=== PATIENT | female | born 1995 | race Hispanic/Latino ===

== ENCOUNTER 2020-06-19 18:38 | Inpatient (IN) | payer MEDICAID, SELFPAY ==
[~2020-06-19 18:38] MED LIST: Bupivacaine 0.25% HCL 30 ML VIAL ONE
[2020-06-19] MEDS: Lactated Ringer's 1,000 ML IV SCH (20:20)
[2020-06-19 20:21] VITALS: BMI 36.2
--- NOTE | 2020-06-19 20:30 | PDOC.FPROB ---
FMR OB H&P: HPI - History of Present Illness Chief Complaint: SROM History of Present Illness: Patient is a 24 yo, at 38 weeks by LMP/29 week sono, late to care at 29 weeks, who presents to the ED due to SROM at 1730 this evening with a gush of clear fluid. She states that baby has moving well, and she has had no bleeding. course has been unremarkable except for a positive chlamydia 05/23 that she states she got an antibiotic and took the full doses of the antibiotic. AMANDEEP was last saturday but she does not have the results yet. Endorses +FM. Endorses LOF. Denies vaginal bleeding, discharge, dysuria, NVD, chest pain, SOB, palpitations, LE swelling, vision changes or headache. Primary Care Physician: KAMI FMR OB H&P: Current - Care : G1 Para: P0 Gestational age: 38 weeks Due date: 07/03/2020 Dating Criteria: LMP/29 week dating sono - OB Labs Blood type: B RH: positive Antibody Screen: negative HIV: negative RPR: negative HepBsAg: negative Rubella: immune Gonorrhea: negative Chlamydia: unknown Pap Smear: NILM 05/18 1 hour gtt: 76 3 hour GTT: 85 GBS: negative H&H: 12.1/35.2 Platelets: 290 - Anatomy Survey Anatomy survey: 05/20/2020 FMR OB H&P: History - Past Medical History PMH: none - OB History OB History: - [employer] History [employer] History: NILM 05/18 - Surgical History Sx History: none - Social History Social History: no alcohol, smoking or drugs - Family History Family History: Mother and grandmother with HTN FMR OB H&P: Medications - Current Home Medications: Medication Instructions Recorded Confirmed Type Vitamin 1 tablet PO DAILY 06/19/20 06/19/20 History Allergies/Adverse Reactions: Allergies Allergy/AdvReac Type Severity Reaction Status Date / Time No Known Allergies Allergy Verified 06/19/20 20:17 FMR OB H&P: ROS - Review of Systems General: denies: fever/chills, weight/appetite/sleep changes Eyes: denies: eye pain, vision changes ENT: denies: nasal congestion, rhinorrhea Cardiovascular: denies: chest pain, palpitation Gastrointestinal: denies: indigestion, nausea, vomiting Genitourinary (Female): denies: incontinence, dysuria Musculoskeletal: denies: pain, stiffness Neurologic: denies: numbness, syncope Integumentary: denies: itching, rash Breast: denies: lumps, bumps Endocrine: denies: cold intolerance, polydipsia, polyuria Hematologic/Lymphatic: denies: prolonged or excessive bleeding, enlarged lymph nodes FMR OB H&P: Vital Signs - Maternal Vital signs: 123/82, 102, temp 98.5 - Heart Tones Baseline: 150 Acceleration: present Deceleration: absent Category: category 1 [place] contractions every: 5-7 min FMR OB H&P: Physical Exam - Physical Exam General: NAD HEENT: normocephalic and atraumatic, PERRLA, EOMI Neck: supple, FROM Chest: non-tender to palpation Breast: symmetric, non-tender Heart: RRR, no murmurs/rubs/gallops General: CTAB, no wheezing Abdomen: soft, gravid, non-tender Musculoskeletal: normal gait and station, pulses present, FROM in all four extremities Neurological: no focal deficit Skin: no rash, good tugor Psychiatric: intact recent and remote memory, good judgement and insight, normal mood and affect - Pelvic Exam Deviation from normal: Speculum exam showed pooling SVE: 350/-2 Turner score: 6 Membranes: SROM Presentation: cephalic FMR OB H&P: A/P Discussion: Date/Time: 06/19/202029 sIUP, Term @ 38 weeks by LMP/29 week sono, MADIE 07/03/2020 GBS negative, labs neg, covid ordered SROM at 1715 Check @ 1930 3/50/-2, cat I strip, baseline 150bpm, alessandro q4-5 min, Turner score 6 - continue monitoring - recheck at 0001, unchanged can consider starting pitocin at that time Hx of Chlamydia - patient states she completed treatment, AMANDEEP last week still pending Late to Care Presented at 29 weeks Dating US @ 29 weeks c/w LMP - CM consult for baby This H&P was discussed with Dr. Flor who agree with the above documentation and plan. Addendum - Attending - Attending Attestation Date/Time: 06/20/20 0236 I personally evaluated the patient and discussed the management with Dr. Mcleod. I agree with the History, Examination, Assessment and Plan documented above.
[2020-06-19] MEDS ORDERED: Lidocaine 1% (PF) 30 ML VIAL SC PRN (20:35)
[2020-06-19] MEDS ORDERED: Acetaminophen 500 MG TAB PO PRN (20:35)
[2020-06-19] MEDS ORDERED: Promethazine HCl 25 MG/ML VIAL IM PRN (20:35)
[2020-06-19] MEDS ORDERED: hydrALAZINE 20 MG/ML VIAL SLOW IVP PRN ×2 (20:35)
[2020-06-19] MEDS ORDERED: NS / Oxytocin 40 units/1000ml 1,000 ML IV PRN (20:35)
[2020-06-19] MEDS ORDERED: NS w/ Oxytocin 10 units 500 ML IV SCH (20:45)
[2020-06-19 21:12] LABS: Hemoglobin 11.9 g/dL (12.0-16.0); Mean Corpuscular HGB CONC 35.5 g/dL (32.0-36.0); Mean Corpuscular Hemoglobin 29.2 pg (27.0-31.0); Mean Corpuscular Volume 82.1 fL (78.0-98.0); Mean Platelet Volume 8.8 fL (7.4-10.4); Platelet Count 253 thou/uL (130-400); RBC Distribution Width 12.5 % (11.5-14.5); Red Blood Cell (RBC) Count 4.08 mill/uL (4.20-5.40); White Blood Cell (WBC) Count 12.3 thou/uL (4.8-10.8)
[2020-06-19 21:37] LABS: Syphilis Antibody Nonreactive (Nonreactive); Syphilis Antibody Index 0.06 S/CO (<1.00 Non-Reactive)
[2020-06-19 22:48] LABS: HBSAg Index 0.17 S/CO (0-0.99); Hep B Surf Ag Non-Reactive S/CO (NonReactive)
--- NOTE | 2020-06-20 00:20 | PDOC.LDPN ---
Labor & Delivery Progress Note - Subjective Subjective: comfortable - Objective Vital signs reviewed and normal: yes General: NAD, breathing through contractions Dilation: 4 Effacement: 50% (60) Station: -2 FHT: category 1, variability present [place] contractions every: 2-4 min Plan: continue plan of care -: sIUP, Term @ 38.1 weeks by LMP/29 week sono, MADIE 07/03/2020 GBS negative, labs neg, covid ordered SROM at 1715 Check @ 1930 50/-2, cat I strip, baseline 150bpm, alessandro q4-5 min, Turner score 6 Check @ 0001 60/-2, cat I strip, 140s/mod/+accels, no decels, alessandro q2-4 min - continue monitoring - patient is currently making change on her own, will recheck at 0400 - patient would still not like any pain intervention at this time, including epidural Hx of Chlamydia - patient states she completed treatment, AMANDEEP last week still pending Late to Care Presented at 29 weeks Dating US @ 29 weeks c/w LMP - CM consult for baby This H&P was discussed with Dr. Flor who agree with the above documentation and plan. Addendum - Attending - Attending Attestation Date/Time: 06/20/20 2030 I personally evaluated the patient and discussed the management with Dr. hernandez. I agree with the History, Examination, Assessment and Plan documented above.
--- NOTE | 2020-06-20 04:43 | PDOC.LDPN ---
Labor & Delivery Progress Note - Subjective Subjective: comfortable, painful contractions - Objective Vital signs reviewed and normal: yes General: NAD, resting Dilation: 4 Effacement: 50% (60) Station: -2 FHT: category 1, variability present [place] contractions every: 2-6 Plan: continue plan of care -: sIUP, Term @ 38.1 weeks by LMP/29 week sono, MADIE 07/03/2020 GBS negative, labs neg, covid ordered SROM at 1715 Check @ 1930 3/50/-2, cat I strip, baseline 150bpm, alessadnro q4-5 min, Turner score 6 Check @ 0001 4/60/-2, cat I strip, 140s/mod/+accels, no decels, alessandro q2-4 min Check @ 0400 4/60/-2, cat I strip, 1402/mod/+accels, no decels, alessandro q 2- 6min, pit started 0430 - patient would still not like any pain intervention at this time, including epidural - continue monitoring Hx of Chlamydia - patient states she completed treatment, AMANDEEP last week still pending Late to Care Presented at 29 weeks Dating US @ 29 weeks c/w LMP - CM consult for baby This H&P was discussed with Dr. Flor who agree with the above documentation and plan. Addendum - Attending - Attending Attestation Date/Time: 06/20/20 4438 I personally evaluated the patient and discussed the management with Dr. Mcleod. I agree with the History, Examination, Assessment and Plan documented above.
--- NOTE | 2020-06-20 07:01 | PDOC.LDPN ---
Labor & Delivery Progress Note - Subjective Subjective: comfortable - Objective Vital signs reviewed and normal: yes General: NAD, resting SVE: 5/70/-2/soft FHT: category 1 [place] contractions every: q 2-3 min Plan: pitocin for augmentation -: sIUP, Term @ 38.2 weeks by LMP/29 week sono, MADIE 07/03/2020 GBS negative, labs neg, covid ordered SROM at 1715 Check @ 1930 3/50/-2, cat I strip, baseline 150bpm, alessandro q4-5 min, Turner score 6 Check @ 0001 4/60/-2, cat I strip, 140s/mod/+accels, no decels, alessandro q2-4 min Check @ 0400 4/60/-2, cat I strip, 1402/mod/+accels, no decels, alessandro q 2- 6min, pit started 0430 Check @ 0645 /70/-2, cat 1 strip, 140s/mod/+accels, one variable over last 2 hours, now resolved, alessandro q2-3, on pitocin - patient would still not like any pain intervention at this time, including epidural - continue monitoring Hx of Chlamydia - patient states she completed treatment, AMANDEEP last week still pending Late to Care Presented at 29 weeks Dating US @ 29 weeks c/w LMP - CM consult for baby Addendum - Attending - Attending Attestation Date/Time: 06/21/20 0956 I personally evaluated the patient and discussed the management with Dr. Crow. I agree with the History, Examination, Assessment and Plan documented above.
[2020-06-20] MEDS: Lactated Ringer's 1,000 ML IV SCH ×2 (07:25→13:09)
--- NOTE | 2020-06-20 09:00 | PDOC.LDPN ---
Labor & Delivery Progress Note - Subjective Subjective: painful contractions - Objective General: breathing through contractions SVE: /- FHT: category 1, variability present [place] contractions every: q2-3 min Plan: continue plan of care -: sIUP, Term @ 38.2 weeks by LMP/29 week sono, MADIE 07/03/2020 GBS negative, labs neg, covid ordered SROM at 1715 Check @ 1930 50/-2, cat I strip, baseline 150bpm, alessandro q4-5 min, Turner score 6 Check @ 0001 60/-2, cat I strip, 140s/mod/+accels, no decels, alessandro q2-4 min Check @ 0400 /-2, cat I strip, 1402/mod/+accels, no decels, alessandro q 2- 6min, pit started 0430 Check @ 0645 /-2, cat 1 strip, 140s/mod/+accels, one variable over last 2 hours, now resolved, alessandro q2-3, on pitocin Check @ 0845 /-1, cat 1 strip, 140/mod/+accels, monitoring has been intermittent consider FSC/IUPC next check in 2 hours - stadol added for pain, does not desire epidural - continue monitoring Hx of Chlamydia - patient states she completed treatment, AMANDEEP last week still pending Late to Care Presented at 29 weeks Dating US @ 29 weeks c/w LMP - CM consult for baby B. Tristin, PGY [address] Medina
[2020-06-20] MEDS ORDERED: Butorphanol Tartrate 1 MG/ML VIAL SLOW IVP PRN (10:00)
[2020-06-20] MEDS ORDERED: Butorphanol Tartrate 1 MG/ML VIAL ONE (10:04)
--- NOTE | 2020-06-20 10:59 | PDOC.LDPN ---
Labor & Delivery Progress Note - Subjective Subjective: painful contractions - Objective Vital signs reviewed and normal: yes General: breathing through contractions SVE: /-1 [place] contractions every: q2-3 min IUPC placed: yes FSE placed: yes Plan: continue plan of care -: sIUP, Term @ 38.2 weeks by LMP/29 week sono, MADIE 07/03/2020 GBS negative, labs neg, covid ordered SROM at 1715 Check @ 1930 350/-2, cat I strip, baseline 150bpm, alessandro q4-5 min, Turner score 6 Check @ 0001 60/-2, cat I strip, 140s/mod/+accels, no decels, alessandro q2-4 min Check @ 0400 /-2, cat I strip, 1402/mod/+accels, no decels, alessandro q 2- 6min, pit started 0430 Check @ 0645 /-2, cat 1 strip, 140s/mod/+accels, one variable over last 2 hours, now resolved, alessandro q2-3, on pitocin Check @ 0845 /-1, cat 1 strip, 140/mod/+accels Check @ 1045 /-1, cat 1 with intermittent monitoring, LOT, IUPC/FSC placed for more adequate monitoring and titration of pitocin, recheck SVE in 2 hours - stadol added for pain, does not desire epidural - continue monitoring Hx of Chlamydia - patient states she completed treatment, AMANDEEP last week still pending Late to Care Presented at 29 weeks Dating US @ 29 weeks c/w LMP - CM consult for baby B. Rehg, PGY [address] Medina
[2020-06-20] MEDS: Ondansetron PF 4 MG/2 ML Vial IVP PRN ×2 (11:58→18:14)
[2020-06-20] MEDS ORDERED: Fentanyl 4 mcg/Bup 0.1% Cadd 100 ML ONE (12:15)
[2020-06-20] MEDS ORDERED: Ondansetron PF 4 MG/2 ML Vial IVP PRN ×2 (12:43→19:59)
[2020-06-20] MEDS ORDERED: Naloxone HCl 0.4 mg/ml Vial IVP PRN ×2 (12:43)
[2020-06-20] MEDS ORDERED: diphenhydrAMINE 50 MG/ML VIAL IVP PRN (12:43)
[2020-06-20] MEDS ORDERED: Promethazine HCl 25 MG/ML VIAL IM PRN ×2 (12:43→19:59)
[2020-06-20] MEDS ORDERED: Lactated Ringer's 500 ML IV PRN (12:43)
[2020-06-20] MEDS ORDERED: EPHEDRINE 25 MG/5 ML SYRINGE SLOW IVP PRN (12:43)
[2020-06-20] MEDS ORDERED: Acetaminophen 325 MG TAB PO PRN (12:43)
[2020-06-20] MEDS ORDERED: Fentanyl 4 mcg/Bupivacaine 0.1% Cassette 100 ML EPIDURAL SCH (12:45)
[2020-06-20] MEDS ORDERED: Communication Order-Pharmacy FS SCH (12:45)
[2020-06-20 13:03] LABS: SARS-CoV-2 MS2 Positive; SARS-CoV-2 N Gene Negative; SARS-CoV-2 S Gene Negative; SARS-CoV-2 by NAA Not Detected (NotDetected); SARS-CoV-2 orf1ab Negative
--- NOTE | 2020-06-20 13:52 | PDOC.LDPN ---
Labor & Delivery Progress Note - Objective Vital signs reviewed and normal: yes General: breathing through contractions SVE: 6/100/-1 FHT: category 1 IUPC placed: yes FSE placed: yes Plan: continue plan of care -: sIUP, Term @ 38.2 weeks by LMP/29 week sonaudie, MADIE 07/03/2020 GBS negative, labs neg, covid ordered SROM at 1715 Check @ 1930 3/50/-2, cat I strip, baseline 150bpm, alessandro q4-5 min, Turner score 6 Check @ 0001 4/60/-2, cat I strip, 140s/mod/+accels, no decels, alessandro q2-4 min Check @ 0400 4/60/-2, cat I strip, 1402/mod/+accels, no decels, alessandro q 2- 6min, pit started 0430 Check @ 0645 5/70/-2, cat 1 strip, 140s/mod/+accels, one variable over last 2 hours, now resolved, alessandro q2-3, on pitocin Check @ 0845 5/90/-1, cat 1 strip, 140/mod/+accels Check @ 1045 5/90/-1, cat 1 with intermittent monitoring, LOT, IUPC/FSC placed for more adequate monitoring and titration of pitocin, recheck SVE in 2 hours Epidural placed @1230. SVE @ 1300 6/100/-1. Adequate contractions. cat 1 strip FHT 140 with now moderate variability, previously did have one variable decel now resolved and some minimal variability now resolved. - continue monitoring - continue pitocin Hx of Chlamydia - AMANDEEP negative on 06/15 per [facility] records Late to Care Presented at 29 weeks Dating US @ 29 weeks c/w LMP - CM consult for baby B. Rehg, PGY [address] Medina
--- NOTE | 2020-06-20 16:31 | PDOC.LDPN ---
Labor & Delivery Progress Note - Subjective Subjective: comfortable - Objective Vital signs reviewed and normal: yes General: breathing through contractions SVE: 7100/0 FHT: category 2, variable decelerations, variability present [place] contractions every: q2-3 min IUPC placed: yes FSE placed: yes -: sIUP, Term @ 38.2 weeks by LMP/29 week sono, MADIE 07/03/2020 GBS negative, labs neg, covid ordered SROM at 1715 Check @ 1930 3/50/-2, cat I strip, baseline 150bpm, alesasndro q4-5 min, Turner score 6 Check @ 0001 4/60/-2, cat I strip, 140s/mod/+accels, no decels, alessandro q2-4 min Check @ 0400 4/60/-2, cat I strip, 1402/mod/+accels, no decels, alessandro q 2- 6min, pit started 0430 Check @ 0645 5/70/-2, cat 1 strip, 140s/mod/+accels, one variable over last 2 hours, now resolved, alessandro q2-3, on pitocin Check @ 0845 5/90/-1, cat 1 strip, 140/mod/+accels Check @ 1045 5/90/-1, cat 1 with intermittent monitoring, IUPC/FSC placed for more adequate monitoring and titration of pitocin Epidural placed @1230. SVE @ 1300 6/100/-1. cat 1 strip FHT 140 with now moderate variability, previously did have one variable decel now resolved and some minimal variability now resolved. - SVE @ 1600 7/100/-1. Cat2 strip for recurrent variables present since last ch elizabeth, now resolved for >10 min. Baby is OP. - continue monitoring - continue pitocin Hx of Chlamydia - AMANDEEP negative on 06/15 per [facility] records Late to Care Presented at 29 weeks Dating US @ 29 weeks c/w LMP - CM consult for baby B. Rehg, PGY [address] Medina
[2020-06-20] MEDS ORDERED: Lidocaine 1% (PF) 30 ML VIAL ONE (17:21)
[2020-06-20] MEDS ORDERED: NS / Oxytocin 40 units/1000ml 1,000 ML ONE (17:21)
[2020-06-20] MEDS ORDERED: NS / Oxytocin 40 units/1000ml 1,000 ML IV SCH (19:59)
[2020-06-20] MEDS ORDERED: Lanolin Ointment 7 GM TUBE TOP PRN (19:59)
[2020-06-20] MEDS ORDERED: Methylergonovine 0.2 MG/ML VIAL IM PRN (19:59)
[2020-06-20] MEDS ORDERED: Preparation H Ointment 28 GM TUBE PR PRN (19:59)
[2020-06-20] MEDS ORDERED: Misoprostol 200 MCG TAB VAG PRN (19:59)
[2020-06-20] MEDS ORDERED: Bisacodyl 10 MG SUPP PR PRN (19:59)
[2020-06-20] MEDS ORDERED: diphenhydrAMINE 25 MG CAP PO PRN (19:59)
[2020-06-20] MEDS ORDERED: hydrALAZINE 20 MG/ML VIAL SLOW IVP PRN (19:59)
[2020-06-20] MEDS ORDERED: Benzocaine-Menthol 82.5 ML CAN TOP PRN (19:59)
[2020-06-20] MEDS ORDERED: Milk Of Magnesia 30 ML UDCUP PO PRN (19:59)
--- NOTE | 2020-06-20 20:10 | PDOC.OPDEL ---
OB Operative/Delivery Note - Additional Findings/Plan Compilations/Other Findings: Delivering Physician: Shani/Derrick Attending: Carol Procedure: Spontaneous Vaginal Delivery Anesthesia: epidural QBL: 220 ml Pre-op Diagnosis: 1. Term intrauterine in labor 2. Chorioamnionitis 2. Hx of Late to Care 3. Hx of Chlamydia, treated successfully Post-op Diagnosis: 1. Term intrauterine , delivered 2. Chorioamnionitis 3. same as above Indications: A 24y/o female presents after SROM in labor Delivery Note: This is 24yo F [id number] who delivered a viable F infant at 1856 on 06/20/2020 . Following an antepartum course complicated by chorioamnionitis during delivery, a vigorous F was delivered over an intact perineum in the IMELDA position. Anterior Shoulder and then remainder of the body delivered. No nuchal cord. The head was held down and mouth and nares were bulb suctioned. Cord clamped after delayed cord clamping and cut and cord blood collected. Placenta delivered intact in the [place] presentation with a 3 vessel cord noted. Fundal massage was performed and the fundus was firm. The cervix and vagina were inspected and a first degree perineal laceration was noted and repaired with 3-0 chromic suture, with 4 non-locking running sutures. Infant went to nursery in good condition for routine care. Apgars were 8/9 at 1 & 5 minutes, respectively. Patient tolerated delivery well. She was started on antibiotics and went to after routine recovery/care. Addendum - Attending - Attending Attestation Date/Time: 06/21/20 0008 I personally evaluated the patient and discussed the management with Dr. Mcleod I agree with the History, Examination, Assessment and Plan documented above with any addition or exceptions noted below.
[2020-06-20] MEDS: Ibuprofen 800 MG TAB PO SCH (20:32)
[2020-06-20] MEDS: Gentamicin 360 MG in Sodium Chloride 0.9% 100 ML IVPB SCH (22:06)
[2020-06-21] MEDS: Ampicillin 2 GM in Sodium Chloride 0.9% 100 ML IVPB SCH ×5 (01:39→23:32)
[2020-06-21] MEDS: Ibuprofen 800 MG TAB PO SCH ×3 (04:34→21:49)
[2020-06-21 06:08] LABS: Hemoglobin 9.8 g/dL (12.0-16.0)
--- NOTE | 2020-06-21 06:45 | PDOC.PP ---
Post Progress Note Post Day #: 1 Subjective: Patient is feeling well this morning. Did have one episode of vomiting after delivery but states none thereafter. She was able to tolerate liquid intake overnight but has not attempted intake of solid foods yet. Denies any abdominal tenderness/pain. Is using Motrin for pain control. Denies any discomfort in vaginal/perineal region. Total QBL at 12 hours is 298 mL. Discussed contraceptions options but undecided at this time. Plans on breast and bottle feeding. PO intake tolerated: yes Flatus: yes Ambulation: yes Weight Weight 95.708 kg - Physical Examination General: NAD Cardiovascular: no m/r/g, RRR Respiratory: clear to auscultation bilaterally, non-labored breathing Abdominal: + bowel sounds, no distention, appropriately TTP Fundus firm & at: umbilicus Extremities: negative homans (B) Skin: no rash Neurological: no gross focal deficits Psychiatric: A&Ox3, normal affect Result Diagrams: 06/21/20 05:47 Additional Labs: Post Labs Hep Bs Antigen Non-Reactive S/CO (NonReactive) 06/19/20 20:48 Blood Type B POSITIVE 06/19/20 22:19 (1) Term delivered Code(s): O80 - ENCOUNTER FOR FULL-TERM UNCOMPLICATED DELIVERY Status: Acute (2) History of chlamydia infection Code(s): Z86.19 - PERSONAL HISTORY OF OTHER INFECTIOUS AND PARASITIC DISEASES Status: Resolved (3) Chorioamnionitis, delivered, current hospitalization Code(s): O41.1290 - CHORIOAMNIONITIS, UNSP TRIMESTER, NOT APPLICABLE OR UNSP Status: Acute - Assessment/Plan sIUP at Term, now delivered G1 now P1001 delivered via @ 1856 on 06/20/2020 @ 38.1 weeks by LMP/29 week sono -GBS negative, covid negative -1st degree laceration suture repaired, 2 additional superficial side wall lacerations were hemostatic -routine care on women's instrumental teacher unit -total QBL 298 mL at 12 hours -undecided on contraception choice -plans on breast and bottle feeding, consulted -Case management consulted for assistance with emergency Medicaid Chorioamnionitis -SROM at 1730 on 06/19, max maternal temp 101.4F at delivery -will cover with 24 hours of Ampicillin and Gentamicin -vitals q4 hr to monitor for fever Hx of Chlamydia - patient completed treatment, AMANDEEP performed 06/15 was NEGATIVE - was additionally tested for Gonorrhea on 06/15, was NEGATIVE Late to Care Presented at 29 weeks Dating US @ 29 weeks c/w LMP - CM consult for baby Diet: Regular VTE: None Code status: FULL Dispo: Stable, continue to monitor on post- unit. Anticipate discharge home tomorrow.
[2020-06-21] MEDS: Docusate Calcium (SURFAK) 240 MG CAP PO SCH ×3 (07:03→21:49)
[2020-06-21] MEDS: Ferrous Sulfate 325 MG TAB PO SCH ×2 (09:29→16:38)
[2020-06-21] MEDS: Prenatal Vitamin 1 TAB PO SCH (09:37)
[2020-06-21] MEDS: Gentamicin 360 MG in Sodium Chloride 0.9% 100 ML IVPB SCH (20:43)
[2020-06-22] MEDS: Ibuprofen 800 MG TAB PO SCH ×2 (05:21→13:59)
--- NOTE | 2020-06-22 06:55 | PDOC.PP ---
Post Progress Note Post Day #: 2 Subjective: Patient doing well this morning. No complaints. Pain controlled with Motrin. States she is ready to go home whenever baby is ready. Ate solid foods, ambulated in room, passing flatus. Plans to follow up with [facility]. PO intake tolerated: yes Flatus: yes Ambulation: yes Vital Signs (12 hours) Temp Pulse Resp BP 06/21/20 21:00 99.9 F H 82 16 118/76 06/21/20 20:43 99.9 F H Weight Weight 95.708 kg - Physical Examination General: NAD Cardiovascular: no m/r/g, RRR Respiratory: clear to auscultation bilaterally, non-labored breathing Abdominal: + bowel sounds, no distention, appropriately TTP Fundus firm & at: umbilicus Skin: no rash Neurological: no gross focal deficits Psychiatric: A&Ox3, normal affect Result Diagrams: 06/21/20 05:47 Additional Labs: Post Labs Hep Bs Antigen Non-Reactive S/CO (NonReactive) 06/19/20 20:48 Blood Type B POSITIVE 06/19/20 22:19 (1) Term delivered Code(s): O80 - ENCOUNTER FOR FULL-TERM UNCOMPLICATED DELIVERY Status: Acute (2) History of chlamydia infection Code(s): Z86.19 - PERSONAL HISTORY OF OTHER INFECTIOUS AND PARASITIC DISEASES Status: Resolved (3) Chorioamnionitis, delivered, current hospitalization Code(s): O41.1290 - CHORIOAMNIONITIS, UNSP TRIMESTER, NOT APPLICABLE OR UNSP Status: Acute - Assessment/Plan sIUP at Term, now delivered G1 now P1001 delivered via @ 1856 on 06/20/2020 @ 38.1 weeks by LMP/29 week sono -GBS negative, covid negative -1st degree laceration suture repaired, 2 additional superficial side wall lacerations were hemostatic -routine 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 -total QBL 298 mL -undecided on contraception choice -plans on breast and bottle feeding, consulted -Case management consulted for assistance with emergency Medicaid Chorioamnionitis -SROM at 1730 on 06/19, max maternal temp 101.4F at delivery -completed 24 hours of Ampicillin and Gentamicin -vitals q4 hr to monitor for fever Hx of Chlamydia - patient completed treatment, AMANDEEP performed 06/15 was NEGATIVE - was additionally tested for Gonorrhea on 06/15, was NEGATIVE Late to Care Presented at 29 weeks Dating US @ 29 weeks c/w LMP - CM consult for baby Diet: Regular VTE: None Code status: FULL Dispo: Stable, continue to monitor on post- unit. Anticipate discharge home today. Addendum - Attending - Attending Attestation Date/Time: 06/22/20 9831 I personally evaluated the patient and discussed the management with Dr. Meza. I agree with the History, Examination, Assessment and Plan documented above.
[2020-06-22 08:05] VITALS: BP 108/56; TEMP 97.8
[2020-06-22] MEDS: Prenatal Vitamin 1 TAB PO SCH (09:23)
[2020-06-22] MEDS: Ferrous Sulfate 325 MG TAB PO SCH (09:23)
[2020-06-22] MEDS: Docusate Calcium (SURFAK) 240 MG CAP PO SCH (09:23)
== END 2020-06-22 15:05 | disposition home or self-care (01) | DRG 805 ==
LOC: L&D/OP 18:38 → L&D 22:58 → 3SW 06-20 23:02
PROVIDERS: ADMIT Obstetrics & Gynecology; ATTEND Obstetrics & Gynecology
PROC: 10E0XZZ Delivery of Products of Conception, External Approach (ICD-10-PCS; principal; 2020-06-20)
PROC: 0HQ9XZZ Repair Perineum Skin, External Approach (ICD-10-PCS; 2020-06-20)
PROC: 10H07YZ Insertion of Other Device into Products of Conception, Via Natural or Artificial Opening (ICD-10-PCS; 2020-06-20)
PROC: 4A1HXCZ Monitoring of Products of Conception, Cardiac Rate, External Approach (ICD-10-PCS; 2020-06-20)
DX: O76 Abnormality in fetal heart rate and rhythm complicating labor and delivery (principal); O41.1230 Chorioamnionitis, third trimester, not applicable or unspecified; Z37.0 Single live birth; Z3A.38 38 weeks gestation of pregnancy; Z86.19 Personal history of other infectious and parasitic diseases; O70.0 First degree perineal laceration during delivery; Z20.828 Contact with and (suspected) exposure to other viral communicable diseases
CPT/HCPCS: 36415; 51702; 85014; 85018; 85027; 86780; 86850; 86900; 86901; 87340; 87635; 88307; 99285; J0290; J0595; J1580; J2405; J2590; J3490; S0020; U0003